=== PATIENT | female | born 1970 | race Two or more races ===

== ENCOUNTER 2024-03-02 21:59 | Emergency (ER) | payer MEDICAID, SELFPAY ==
[2024-03-02 22:07] VITALS: BP 174/97; PULSE 82; RESP 18; TEMP 37.1; O2SAT 95; BMI 33.6
--- NOTE | 2024-03-02 22:14 | ED.ABDPAIN ---
HPI - Abdominal Pain General Time Seen by Provider: 22:14 Date Seen: 03/02/24 Chief Complaint: Abdominal Pain Stated Complaint: abdominal pain Time Seen by Provider: 03/02/24 22:13 Source: patient, RN notes reviewed, old records reviewed and certified court/medical interpreter ( certified court/medical interpreter was used for the entirety of the visit.) Mode of arrival: ambulatory Limitations: no limitations History of Present Illness HPI narrative: This 53-year-old female is coming into the ER with complaint of abdominal pain. She has had abdominal pain that is associated with nausea and vomiting tonight. It is been going on a few hours. She had a normal bowel movement earlier today, no diarrhea. Pain is quite severe. She admits about a week ago she had a similar spell but it went away. She had told nursing staff that her gallbladder had been removed but I have questioned her multiple times, she states she has never had any abdominal surgery. She has felt chilled with this. No urinary symptoms. She states her only past medical history is significant for a brain aneurysm. Patient is epic chart reviewed. Last colonoscopy was in 2020, history of adenomatous colon polyp. She has rheumatoid arthritis. She has scoliosis of her thoracic spine and thoracic degenerative disc disease. She has cervical stenosis. History of dysthymic disorder and insomnia. History of depression and generalized anxiety disorder. History of hypertension. She has had a ganglion cyst excision. She has had cerebral aneurysm with DAVID WEB left middle cerebral artery. Patient has had a hysterectomy and prior section for surgeries. MD elicited complaint: abdominal pain Related Data Home Medications ?Medication ?Instructions ?Recorded ?Confirmed tocilizumab 162 mg/0.9 mL 1 subcut Q2W 03/02/24 subcutaneous syringe (Actemra) Allergies Allergy/AdvReac Type Severity Reaction Status Date / Time No Known Drug Allergies Allergy Verified 03/02/24 22:11 Review of Systems Status of ROS Reports: 6 or more systems reviewed and unremarkable except as noted in History and below PFSH PFSH Social History Smoking Status: Never smoker Do you use any of these nicotine containing products: None Second hand tobacco smoke exposure: No How often do you have a drink containing alcohol: never AUDIT-C Alcohol total score: 0 Non-prescribed substance use: denies use service: No Exam Const: Vital Signs, click to edit/add: Vital Signs - 24 hr 03/02/24 22:07 03/02/24 22:20 03/03/24 00:12 Temperature 98.7 F 100.7 F H Pulse Rate [Pulse Oximeter] 82 Respiratory Rate 18 Blood Pressure [Ri ght Upper Arm] 174/97 H Pulse Oximetry 95 95 Oxygen Delivery Me thod Room Air This 53-year-old female is very well kept but looks uncomfortable. She is seen in exam room 5. She is alert and interactive. Pupils equal round reactive, sclera clear, symmetrical facial function, able speak in complete sentences. Neck is supple, no adenopathy. Lungs are clear, good air entry, no wheezing crackles, tachypnea. CV regular rate and rhythm, no murmur, normal S1-S2, no S3-S4. Abdomen is soft, nondistended, I do not hear much for bowel sounds. She has more right sided generalized tenderness but no rebound or guarding. She has no lower extremity edema. Skin visualized without rash. Documenting provider has reviewed patient's vital signs: yes Course Course ED Course: This 53-year-old female is coming in with significant abdominal pain and nausea. We will initiate IV fluids, Toradol and Zofran for symptom control. Will be obtaining CT of her abdomen pelvis to look at intra-abdominal pathology, ensure that this is nothing surgical. Will obtain urinalysis, full complement of labs. If patient indeed does have her gallbladder, could be biliary colic or cholecystitis could be urinary symptom with infection such as pyelonephritis or kidney stone. This could be bowel pathology such as colitis, bowel obstruction. The imaging in the labs will certainly help us define the etiology. Reevaluation(s) Time of Reevaluation #1: 23:35 Reevaluation #1: Reviewed patient's CT findings the probable diverticulitis with abscess. We discussed that in her medication for her rheumatoid arthritis certainly can make infections more problematic for her. We discussed the fact that she would benefit from transferring to a higher level of care, it is possible that these abscesses may be amenable to interventional radiology. If they are not, the complexity of her case warrants cares beyond which we have here. We do not have multifaceted medical care teams with the specialties she may need. The Toradol initially had helped the patient but she states just recently her pain is starting to come back. Did discuss with her getting a dose of morphine which she would like to try. Time of Reevaluation #2: 00:10 Reevaluation #2: Patient has a temperature now of 100.7? F. We will give her 1000 mg acetaminophen. Still awaiting transfer. Follow-up lactate should be drawn shortly. Consultations Consultation #1: Did speak with the hospitalist Dr. Duncan from [facility]. She did want to see a lactate repeated. She does accept this patient. She did not need me to speak with General surgery, I did ask. I subsequently found out that nursing staff missed the fluid bolus that I had initially ordered. They will get this to the patient as quickly as possible and then start the maintenance. We still will attempt to recheck a lactate prior to patient transferring. We do need to wait for bed control to contact us and nurse to nurse to happen. Patient is complaining of more pain. Did give her initial 2 mg IV morphine which did not help at all, will repeat bolus with another 2 mg IV morphine. If this is not sufficient, will move to [facility]. Time: 23:40 Vital Signs Vital signs: Initial Vital Signs Temperature 98.7 F 03/02/24 22:07 Temperature Source Temporal Artery Scan 03/02/24 22:07 Pulse Rate 82 03/02/24 22:07 Pulse Rhythm Regular 03/02/24 22:07 Pulse Strength 3+ Normal 03/02/24 22:07 Respiratory Rate 18 03/02/24 22:07 Blood Pressure 174/97 H 03/02/24 22:07 Blood Pressure Mean 122 H 03/02/24 22:07 Blood Pressure Position Semi-Fowlers 03/02/24 22:07 Pulse Oximetry 95 03/02/24 22:07 Oxygen Delivery Method Room Air 03/02/24 22:07 Vital Signs Temperature 98.7 F 03/02/24 22:07 Pulse Rate 82 03/02/24 22:07 Respiratory Rate 18 03/02/24 22:07 Blood Pressure 174/97 H 03/02/24 22:07 Pulse Oximetry 95 03/02/24 22:07 Oxygen Delivery Method Room Air 03/02/24 22:07 Temperature 99.1 F 03/03/24 01:58 Pulse Rate 102 H 03/03/24 01:58 Respiratory Rate 20 03/03/24 01:58 Blood Pressure 145/81 H 03/03/24 01:58 Pulse Oximetry 94 03/03/24 01:57 Oxygen Delivery Method Room Air 03/03/24 01:57 Medications Administered Medications: Discontinued Medications Generic Name Dose Route Start Last Admin Trade Name Chela PRN Reason Stop Dose Admin Acetaminophen 1,000 mg 03/03/24 00:10 03/03/24 00:19 Acetaminophen 500 Mg Tablet PO 03/03/24 00:11 1,000 mg ONCE ONE Administration Sodium Chloride 1,000 mls @ 500 mls/hr 03/02/24 22:21 03/03/24 00:19 0.9 % Sodium Chloride 1000 Ml IV 03/03/24 00:20 Infused .Q2H DOREEN Infusion Piperacillin Sod/Tazobactam 100 mls @ 200 mls/hr 03/02/24 23:30 03/03/24 00:19 Sod 3.375 gm/ Sodium Chloride IVPB 03/02/24 23:31 Infused ONCE ONE Infusion Potassium Chloride/Sodium Chloride 1,000 mls @ 100 mls/hr 03/02/24 23:31 03/03/24 00:18 0.9 % Sodium Ch + Kcl 20 Meq/L IV 100 mls/hr .Q10H DOREEN Administration Ketorolac Tromethamine 15 mg 03/02/24 22:20 03/02/24 22:33 Ketorolac 15 Mg/Ml Inj IVP 03/02/24 22:21 15 mg ONCE ONE Administration Morphine Sulfate 2 mg 03/02/24 23:48 03/02/24 23:50 Morphine 2 Mg/Ml Inj IVP 03/02/24 23:49 2 mg ONCE ONE Administration Morphine Sulfate 2 mg 03/02/24 23:55 03/02/24 23:55 Morphine 2 Mg/Ml Inj IVP 03/02/24 23:56 2 mg ONCE ONE Administration Ondansetron HCl 4 mg 03/02/24 22:20 03/02/24 22:30 Ondansetron 2 Mg/Ml Inj IVP 03/02/24 22:21 4 mg ONCE ONE Administration MDM - Abdominal Pain Lab Data Attestation: I reviewed the patient's lab results. Labs: Lab Results 03/02/24 03/03/24 03/03/24 Range/Units 22:10 00:10 01:05 WBC 7.51 (4.50-11.00) K/uL RBC 4.94 (4.00-5.20) m/uL Hgb 14.9 (12.0-16.0) gm/dL Hct 44.1 (33.0-51.0) % MCV 89 (80-100) fL MCH 30 (26-34) pg MCHC 34 (32-36) gm/dL RDW Coeff of Nicola 13.1 (11.5-15.5) % Plt Count 286 (140-440) K/uL Neut % (Auto) 74.2 H (42.0-72.0) % Lymph % (Auto) 16.9 L (20-44) % [place] % (Auto) 2.9 (0.0-11.0) % Eos % (Auto) 5.2 (0.0-7.0) % Baso % (Auto) 0.1 (0.0-3.0) % Neut # (Auto) 5.60 (1.7-7.0) K/uL Lymph # (Auto) 1.30 (0.90-2.90) K/uL [place] # (Auto) 0.20 (0.00-0.90) K/UL Eos # (Auto) 0.39 (0.00-0.50) K/uL Baso # (Auto) 0.01 (0.00-0.30) K/uL Abs Immat Gran (auto) 0.05 (0.00-0.30) K/uL Imm/Tot Granulo (auto) 0.7 % Sodium 140 (135-149) mmol/L Potassium 3.3 L (3.6-5.1) mmol/L Chloride 104 (96-114) mmol/L Carbon Dioxide 28 (20-32) mmol/L Anion Gap 8 (7-15) mEq/L BUN 17 (7-30) mg/dL Creatinine 0.7 (0.5-1.5) mg/dL Estimated Creat Clear 65.99 Estimated GFR 103 ml/min Glucose 124 H (60-115) mg/dL Lactate 3.1 H 2.1 H (0.5-1.9) mmol/L Calcium 8.9 (8.4-10.6) mg/dL Total Bilirubin 0.8 (0.1-1.5) mg/dL Direct Bilirubin 0.4 (0.0-0.5) mg/dL AST 85 H (12-35) U/L ALT 91 H (4-35) U/L Alkaline Phosphatase 117 (40-150) U/L C-Reactive Protein 1.1 H (0.5-1.0) mg/dL Total Protein 7.8 (6.0-8.3) g/dL Albumin 4.7 (3.3-5.0) g/dL Lipase 55 (23-300) U/L Urine Color Yellow (Yellow) Urine Appearance Clear (Clear) Urine pH 7.0 (5.0-8.5) Ur Specific [place] 1.015 (1.000-1.030) Urine Protein Negative (Negative) Urine Glucose (UA) Negative (Negative) Urine Ketones Negative (Negative) Urine Blood Trace-intact A (Negative) Urine Nitrite Negative (Negative) Urine Bilirubin Negative (Negative) Urine Urobilinogen 0.2 (0.2-1.0) Ur Leukocyte Esterase Negative (Negative) Urine RBC 2-5 A (0-2) Urine WBC 2-5 (0-5) Ur Squamous Epith Cells Few (None-Few) Urine Bacteria Few A (None) Imaging Data CT scan - abdomen: Attestation: I have reviewed the pertinent imaging results. Radiologist's impression: Patient: CIARA ZHAO Facility:?[facility] Patient ID:?[id number] Site Patient ID:?[id number]. Site :?[id number] Study:?CT-Abdomen/Pelvis W/ISOVUE 370 84CC-03/02/2024 11:06:05 PM Ordering Physician:?Richie Garcia Final Report: Indication: Abdominal pain, nausea and vomiting Technique: CT through the abdomen and pelvis following 84 mL Isovue 370 IV contrast Comparison: None Findings: Lower chest: No acute abnormality appreciated. Hepatobiliary: No significant parenchymal abnormality is appreciated. Spleen: Unremarkable. Pancreas: No acute abnormality appreciated. Adrenal glands: No acute abnormality appreciated. Kidneys: No significant parenchymal abnormality appreciated. No visualized calculi. No hydronephrosis. Bowel: No obstruction. Marked wall thickening and stranding along the sigmoid colon. There is an organized fluid collection likely arising from an area of diverticulitis to the lower paramedian abdomen which appears to have at least 2 loculated components, with the portion abutting: Measuring 2.6 x 1.9 centimeters, and the collection just superior which is abutting the small bowel measuring 2.6 x 2.7 centimeters. The adjacent small bowel is markedly thickened, likely reactive. The appendix is noted, appears mildly inflamed but may be reactive. Vascular: No acute abnormality appreciated. Lymph nodes: No gross lymphadenopathy. Peritoneum: As above, no free air. : Mild wall thickening, likely reactive. Soft tissues: No acute abnormality appreciated. Bones: No acute fracture. No lytic or blastic lesion. Impression: Suspect acute diverticulitis with a multiloculated abscess and reactive wall thickening of the small bowel and appendix. Please note that all CT scans at this facility use dose modulation, iterative reconstruction, and/or weight-based dosing when appropriate to reduce radiation dose to as low as reasonably achievable. Dictated by Eusebio Fried MD @ 03/02/2024 11:17:40 PM (Electronic Signature) Discharge Plan Discharge Clinical Impression: Diverticulitis of intestine with abscess Qualifiers: Diverticulitis site: large intestine Diverticulitis bleeding: without bleeding Qualified Code(s): K57.20 - Diverticulitis of large intestine with perforation and abscess without bleeding Patient Disposition: Xfer Acute Care Hospital Discharge Location: [facility]
[2024-03-02 22:20] VITALS: O2SAT 95
--- NOTE | 2024-03-02 22:20 | CRLHL7_ITS ---
For Patients: As a result of the Century Cures Act, medical imaging exams and procedure reports are released immediately into your electronic medical record. You may view this report before your referring provider. If you have questions, please contact your health care provider. Indication: Abdominal pain, nausea and vomiting Technique: CT through the abdomen and pelvis following 84 mL Isovue 370 IV contrast Comparison: None Findings: Lower chest: No acute abnormality appreciated. Hepatobiliary: No significant parenchymal abnormality is appreciated. Spleen: Unremarkable. Pancreas: No acute abnormality appreciated. Adrenal glands: No acute abnormality appreciated. Kidneys: No significant parenchymal abnormality appreciated. No visualized calculi. No hydronephrosis. Bowel: No obstruction. Marked wall thickening and stranding along the sigmoid colon. There is an organized fluid collection likely arising from an area of diverticulitis to the lower paramedian abdomen which appears to have at least 2 loculated components, with the portion abutting: Measuring 2.6 x 1.9 centimeters, and the collection just superior which is abutting the small bowel measuring 2.6 x 2.7 centimeters. The adjacent small bowel is markedly thickened, likely reactive. The appendix is noted, appears mildly inflamed but may be reactive. Vascular: No acute abnormality appreciated. Lymph nodes: No gross lymphadenopathy. Peritoneum: As above, no free air. : Mild wall thickening, likely reactive. Soft tissues: No acute abnormality appreciated. Bones: No acute fracture. No lytic or blastic lesion. Impression: Suspect acute diverticulitis with a multiloculated abscess and reactive wall thickening of the small bowel and appendix. Please note that all CT scans at this facility use dose modulation, iterative reconstruction, and/or weight-based dosing when appropriate to reduce radiation dose to as low as reasonably achievable. Dictated by Eusebio Fried MD @ 03/02/2024 11:17:40 PM (Electronically Signed)
[2024-03-02 22:27] LABS: Lactate* 3.1 mmol/L (0.5-1.9)
[2024-03-02] MEDS: ONDANSETRON 2 MG/ML inj 4 MG IVP (22:30)
[2024-03-02] MEDS: KETOROLAC 15 MG/ML inj IVP (22:33)
[2024-03-02 22:43] LABS: Albumin* 4.7 g/dL (3.3-5.0); Chloride* 104 mmol/L (96-114)
[2024-03-02 22:44] LABS: Potassium* 3.3 mmol/L (3.6-5.1); Sodium* 140 mmol/L (135-149)
[2024-03-02 22:46] LABS: Alkaline Phosphatase* 117 U/L (40-150); Anion Gap 8 mEq/L (7-15); Aspartate Amino Transferase* 85 U/L (12-35); Basophils Absolute Auto 0.01 K/uL (0.00-0.30); Basophils Percent Auto 0.1 % (0.0-3.0); Bilirubin Direct* 0.4 mg/dL (0.0-0.5); Bilirubin Total* 0.8 mg/dL (0.1-1.5); Carbon Dioxide* 28 mmol/L (20-32); Creatinine* 0.7 mg/dL (0.5-1.5); Eosinophils Absolute Auto 0.39 K/uL (0.00-0.50); Eosinophils Percent Auto 5.2 % (0.0-7.0); Est. Creatinine Clearance* 65.99; Estimated Glomerular Filt Rate 103 ml/min; Hematocrit 44.1 % (33.0-51.0); Hemoglobin* 14.9 gm/dL (12.0-16.0); Immature Granulocytes Abs Auto 0.05 K/uL (0.00-0.30); Immature Granulocytes Pct Auto 0.7 %; Lymphocytes Percent Auto 16.9 % (20-44); Mean Corpuscular HGB Conc 34 gm/dL (32-36); Mean Corpuscular Hemoglobin 30 pg (26-34); Mean Corpuscular Volume 89 fL (80-100); Monocytes Percent Auto 2.9 % (0.0-11.0); Neutrophils Percent Auto 74.2 % (42.0-72.0); Platelet Count* 286 K/uL (140-440); RDW Coefficient of Variation % 13.1 % (11.5-15.5); Red Blood Count 4.94 m/uL (4.00-5.20); Total Protein* 7.8 g/dL (6.0-8.3); White Blood Count* 7.51 K/uL (4.50-11.00)
[2024-03-02 22:47] LABS: Alanine Aminotransferase* 91 U/L (4-35); Blood Urea Nitrogen* 17 mg/dL (7-30); Calcium* 8.9 mg/dL (8.4-10.6); Glucose* 124 mg/dL (60-115)
[2024-03-02 22:49] LABS: C Reactive Protein* 1.1 mg/dL (0.5-1.0)
[2024-03-02 22:50] LABS: Slide Review Reflex No
[2024-03-02 22:51] LABS: Lipase* 55 U/L (23-300)
--- OUTSIDE RECORDS SUMMARY | 2024-03-02 23:10 | XMS_ITS | Data Portability ---
Author Organization [facility] Address [address] [place] [address] JAQUAN ASHRAF [id number] Assessment Encounter Date Assessment Date Assessment LastModified by Organization Details LastModified Time 04/14/2020 04/14/2020 preop exam brain aneurysm Not available 04/14/2020 19:51:53 Plan of Treatment Reminders Order Date Submit Date Provider Last Modified By Organization Details Last Modified Time Details Appointments None recorded. Lab CMP, serum or plasma 2019 [facility] Not available 0 12:07:20 CBC 2019 020 [facility] Not available 0 12:10:34 INR, plasma 2019 020 [facility] Not available 0 12:10:34 Referral None recorded. Procedures None recorded. Surgeries None recorded. Imaging None recorded. Medication Orders loratadine 10 mg tablet [address], [address], 16:18:45 famotidine 20 mg tablet [address], [address], 16:18:36 Patient TargetsNo targets recorded. Patient Instructions Encounter Date Encounter Id Patient Instructions Last Modified By Organization Details Last Modified Time 04/14/2020 [id number] rhythm strip, EKG* [email or web address] Not available 04/21/2020 16:43:32 go for lab work at [facility] tomorrow. Not available 04/14/2020 19:58:17 Reason for Referral None Reported. Results Created Date Observation Date Name Description Value Unit Range Abnormal Flag LastModifiedBy Organization Detail LastModifiedTime 04/21/20 20 04/15/2020 rhyth m strip , EKG* No observ ation record ed. [email or web address] Not Available 15:21:28 Result Notes None recorded. Problems Name Status Onset Date Resolution Date Notes Provider Name and Address Organization Details Recorded Time Rheumatoid arthritis Active ANURADHA MAK [address] [place] [address], [phone] , [email or web address] 05/03/2022 14:33:22 Migraine Active ANURADHA MAK [address] [place] [address], [phone] , [facility] [employer] 05/03/2022 14:34:15 History of cerebral aneurysm Completed 05/03/2022 ANURADHA MAK [address] [place] [address], [phone] , [employer] 05/03/2022 14:34:28 Hypertensive disorder Active ANURADHA MAK [address] [place] [address], [phone] , [facility] [employer] 05/03/2022 14:39:42 Anxiety disorder Active ANURADHA MAK [address] [place] [address], [phone] , [employer] 05/03/2022 14:39:50 Depressive disorder Active ANURADHA MAK [address] [place] [address], [phone] , [employer] 05/03/2022 14:39:57 Uterine fibroid polyp Completed 05/03/2022 ANURADHA MAK [address] [place] [address], [phone] , [employer] 05/03/2022 14:40:10 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 Procedures Surgical History None recorded. Imaging Results Imaging Date Name Status LastModified by Organiz ation Details LastModified Time 04/15/2020 rhythm strip, EKG* completed Information not available 05/05/2021 15:21:28 Procedure Notes None recorded. Medical Equipment None Reported. Allergies No known drug allergies Medications Name Sig Start Date Stop Date Status Note LastModified by Organization Details LastModified Time tizanidine 4 mg tablet TAKE 1 TABLET (4 MG) BY MOUTH EVERY 6 HOURS IF NEEDED FOR MUSCLE SPASM. 05/04 completed Not Available Not Available Not Available prednisone 5 mg tablet TAKE 1 TABLET (5 MG) BY MOUTH ONCE DAILY WITH A MEAL. 05/04 completed Not Available Not Available Not Available famotidine 20 mg tablet TAKE 1 TABLET BY MOUTH TWICE A DAY active Not Available Not Available No t Available triamcinolo ne acetonide 0.1 % lotion APPLY TOPICALLY TO AFFECTED AREA(S) THREE TIMES DAILY. active Not Available Not Available No t Available loratadine 10 mg tablet TAKE 1 TABLET BY MOUTH EVERY DAY active Not Available Not Available No t Available cholecalcif francisca (vitamin D3) 1 tablet daily active Not Available Not Available No t Available B12 1 pill active Not Available Not Availa ble Not Available Queta Allergy 180 mg tablet Take 1 tablet every day by oral route. active Not Available Not Available No t Available Vitals Date Recorded Body height Body mass index (BMI) Body weight Heart rate Body temperature Oxygen saturation Oxygen saturation in Arterial blood by Pulse oximetry Systolic blood pressure Diastolic blood pressure Provider Name and Address Organization Details Last Updated DateTime 0 147.32 cm 35.3 kg/m2 81849.1 1 g 72 /min 98.5 [degF] 97 % 97 % 132 mm[Hg] 88 mm[Hg] Casie Quiros [facility] [employer] [facility] 0 19:30:03 Date Recorded Body weight Heart rate Systolic blood pressure Diastolic blood pressure Provider Name and Address Organization Details Last Updated DateTime 05/04/2022 93472.45 g 74 /min 172 mm[Hg] 98 mm[Hg] ANA MAK [address] [place] [address], [phone] , [place] [facility] 05/04/2022 10:21:33 Social History Question Answer Notes LastModified by Organizat ion Details LastModified Time Tobacco Smoking Status Never Smoker Not Available [employer] 05/25/2020 03:52:53 Do You Or Have You Ever Used E-cigarettes Or Vape? Never Used Electronic Cigarettes [id number] Information not available 05/25/2020 Sex: Unknown Functional Status None recorded. Mental Status None recorded. Family History Nothing Reported. Medical History No medical history recorded. Gynecological HistoryNo gynecological history recorded. 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 Concerns Section Related Observation LastModified by Organization Detai ls LastModified Time None Recorded Concern Status LastModified by Organization Details LastModified Time None Recorded Advance Directives Directive None Recorded Payers Encounter Date Sequence Insurance Name Policy Number Policy Matos Covered Member ID Matos Member ID Guarantor Name 02/05/2020 SLIDING FEE SCHEDULE - DISCOUNT Aaliyah Kyrie 04/14/2020 SLIDING FEE SCHEDULE - DISCOUNT Aaliyah Kyrie 05/04/2022 SLIDING FEE SCHEDULE - DISCOUNT Aaliyah Kyrie Notes Date Note Type Note Provider Name and Address Organization Details Recorded Time 04/14/2020 text/html HPI Notes: Pre-O p Reported by patient. Notes: Seen today for preop exam for cerebral angiogram and coiling Iker Lynch MD [address] [place], [address], [facility] [employer] [facility] 04/14/2020 19:59:43 05/04/2022 text/html HPI Notes: Speak s pretty good Kyrgyz, so criminal justice professor was not used. Pt presents to clinic to discuss recurrent hives. She was seen at [facility] and given Triamcinolone in addition to queta. The cream helps the itching, but does not prevent the rash. They appear as hot, itchy bumps. She itches them and then they form a small scab. She insists these are not bug bites. Lesions last <24 hours, no pattern to emergency, non-photophobic, non painful. She denies new exposures (foods, soap, detergent, pets, other environmental). She has not trialled a food diary. ELIZABETH MAK- [address] [place], [address], [facility] [employer] [facility] 05/08/2022 13:22:02 OBGyn Episode No OBEpisode recorded.
--- OUTSIDE RECORDS SUMMARY | 2024-03-02 23:10 | XMS_ITS | Clinical Summary ---
Author Organization [facility] Address [place], [place] [address] Care Team Providers Care Game Operator Name Role Phone Antione Lloyd MD Unavailable Unavailab Kelvin Joiner MD Unavailable [phone] Pcp, No Primary Care Provider Unavailabl e Allergies Active Allergy Reactions Criticality Noted Date Comments Rituximab Other - Describe In Comment Field 04/07/2021 Throat swelling?? Medications Medication Sig Dispensed Refills Start Date End Date Status cyanocobalamin (VITAMIN B-12) 1,000 mcg tablet Take 1 tablet by mouth once daily. 90 tablet 3 03/18/2019 Active acetaminophen (TYLENOL EXTRA STRENGTH) 500 mg tablet Take 500 mg by mouth 2 times daily if needed. Max acetaminophen dose: 4000mg in 24 hrs. Active meloxicam (MOBIC) 7.5 mg tabletIndications :Chronic midline low back pain with left-sided sciatica Take 1-2 Tablets (7.5-15 mg) by mouth once daily. Do not take other NSAID medication with this ( No ibuprofen). 60 Tablet 3 10/10/2022 Active Additional Information Patient taking differently: 7.5 mgOral DAILY, Do not take other NSAID medication with this ( No ibuprofen)., Reported on 10/26/2023 MAGNESIUM ORAL Take by mouth. Active tocilizumab (Actemra) 162 mg/0.9 mL subcutaneous syringeIndication s:Rheumatoid arthritis, involving unspecified site, unspecified whether rheumatoid factor present (HC) Inject 162 mg subcutaneous every 2 weeks. 1.8 mL 4 02/04/2024 Active tocilizumab (Actemra) 162 mg/0.9 mL subcutaneous syringeIndication s:Rheumatoid arthritis, involving unspecified site, unspecified whether rheumatoid factor present (HC) Inject 162 mg subcutaneous every 2 weeks. 1.8 mL 4 10/26/2023 4 Discontinue d(Reorder (E-cancel not sent)) Active Problems Problem Noted Date Diagnosed Date Adenomatous colon polyp 08/24/2020 Overview: Colonoscopy 07/2020 polyp, repeat in 7 years Rheumatoid arthritis with positive rheumatoid fa ctor 05/28/2020 History of hypertension 04/03/2019 Overview: Only while on Cymbalta Brain aneurysm 08/23/2018 Overview: S/p endovascular WEB embolization of incidental left MCA aneurysm on 04/01/19. WEB device is MRI compatible up to 3 Shannon. Chronic midline low back pain without sciatica 0 03/08/2018 Cervical stenosis of spine 01/10/2018 Moderate episode of recurrent major depressive d isorder 07/25/2017 MITCH (generalized anxiety disorder) 07/25/2017 Insomnia 03/21/2017 DDD (degenerative disc disease), thoracic 2012 Scoliosis of thoracic spine 06/19/2012 Overview: Slight, convex to the right Dysthymic disorder 07/05/2011 Rheumatoid arthritis(714.0) 02/06/2007 Overview: Positive RA quant, 2002 Flat foot(734) 01/29/2007 Resolved Problems Problem Noted Date Diagnosed Date Resolved Date Severe neutropenia 10/16/2019 3 Antiplatelet or antithrombotic long-term use 9 10/03/2022 Hypertension 07/31/2018 03/18/2019 Other person consulting on b ehalf of another person 07/05/2011 10/03/2022 Menorrhagia 06/30/2011 07/31/2018 Encounter for long-term (cur rent) use of high-risk medication 12/03/2008 12/03/2008 Encounter for long-term (cur rent) use of high-risk medication 09/25/2008 02/17/2015 Encounter for long-term (cur rent) use of other medications 03/06/2008 12/03/2008 Encounters Date Type Department Care Team Description 02/11/[address] [facility] [address] [place] [address] Kelvin Barboza MD Questions (Actemra) 02/04/[address] [facility] [address] [place] [address] Kelvin Barboza MD Refill Request (SQ Actemra) from Last 3 Months Immunizations Name Administration Dates Next Due Influenza, IIV3 (Age >=3 years) 04/10/2013,03/26,05/13/2008,07/19/2007 Influenza, IIV4 04/16/2019,07/31/2018,05/25/2016 ,07/07/2015 MMR 12/06/2004 Td (Age >=7 Years) 07/24/1998 Tdap 07/31/2018,08/27/2008 Tuberculin (PPD) 02/09/2003 Family History Medical History Relation Name Comments Diabetes Brother raphael Diabetes Father Diabetes Sister Anesthesia Problem No Family History Blood Disease No Family History Cancer-breast No Family History Relation Name Status Comments Brother raphael Alive Father (Age ?) ? Mother (Age ?) ? Sister Social History Tobacco Use Types Packs/Day Years Used Date Smoking Tobacco: Never Smokeless Tobacco: Never Tobacco Cessation:Counseling Given: Yes Alcohol Use Standard Drinks/Week Comments No 0 (1 standard drink = 0.6 oz pur e alcohol) PHQ-2 Answer Date Recorded PHQ-2 TOTAL SCORE 0 04/06/2022 Social Connections Answer Date Recorded Frequency of Communication with Friends and Fami ly Not on file 07/14/2021 Financial Resource Strain Answer Date R ecorded Difficulty of Paying Living Expenses Not on file 07/14/2021 Difficulty of Paying Living Expenses Not on file 07/14/2021 Sex and Gender Information Value Date Recorded Sex Assigned at Not on file Gender Identity Not on file Sexual Orientation Not on file Obstetrics History Para Term AB IAB SAB Ectopic Multiple Livin g Live Births 4 0 0 0 1 0 1 0 0 2 2 Date Outcome GA Total Labor Labor/2nd/3rd Weight Sex Type Anes PTL Nayla A1 A5 Name Clin Comments:System Genera adis. Please review and update details. SAB Living Living Last Filed Vital Signs Vital Sign Reading Time Taken Comments Blood Pressure 144/76 10/26/2023 12:06 PM CDT Pulse 86 10/26/2023 12:06 PM CDT Temperature 36.8 ??C (98.2 ??F) 04/05/2021 9:07 AM CD T Respiratory Rate 12 10/26/2023 12:06 PM CDT Oxygen Saturation 98% 10/10/2022 8:13 AM CDT Inhaled Oxygen Concentration - - Weight 80.3 kg (177 lb) 10/26/2023 12:06 PM CDT Height 149.9 cm (4' 11) 04/06/2023 1:00 PM CDT Body Mass Index 35.75 04/06/2023 1:00 PM CDT Plan of Treatment Upcoming Encounters Date Type Department Care Team (Late st Contact Info) Description 05/02/2024 1:00 PM CDT Office Visit [facility] [address] [place] [address] Kelvin Barboza MD [address] [place] [address] Health Maintenance Due Date Last Done Comments COVID-19 vaccine series (#1) 1974 Zoster (shingles) series for age 50+ (1 of 2) 1988 Mammogram for age 45-75 06/25/2021 06/25/20, 10/09/2018, 08/30/2017, Additional history exists Depression screening for age 12+ 04/06/2023 04/06/2022, 04/06/2022, 03/02/2021, Additional history exists Lipids for age 45-75 07/31/2023 07/31/2018, 08/30/2017, 11/15/2015, Additional history exists Influenza for age 50-64 03/23/2024 04/16/20, 07/31/2018, 05/25/2016, Additional history exists BMI (ht and wt on same day) for age 18+ 04/06/2024 04/06/2023, 04/06/2022, 11/11/2021, Additional history exists Colonoscopy through age 75 08/20/202708/20, 08/20/2020, 08/20/2020, Additional history exists Tetanus booster 07/31/2028 07/31/2018, 11/2008, 07/24/1998 Tdap Completed 07/31/2018, 08/27/2008 HIV for age 15-65 Completed 09/04/2019 Hepatitis C screening for age 18-79 Completed 09/04/2019, 09/02/2019, 02/09/2003 Pneumococcal series for age 6-64 Aged Out No longer eligible based on patient's age to complete this topic Goals Goal Patient Goal Type Associated Problems Recent Progress Patient-Stated? Author BLOOD PRESSURE - MAINTAINS BP less than 140/90 Blood Pressure No Kailey Velasco NP Procedures Procedure Name Priority Date/Time Associated Diagnosis Comments COLONOSCOPY SCREENING Routine 08/20/2020 9:51 AM [employer] Screening for colon cancer XR MAMMO BILAT SCREENING Routine 06/25/2020 1:47 PM [employer] Encounter for screening mammogram for malignant neoplasm of breast ANTI HIV 1/2 Routine 09/04/2019 3:38 PM [employer] Abnormal white blood cell count ANTI HCV Routine 09/04/2019 3:38 PM [employer] O[employer]ATOR Abnormal white blood cell count LIPID PANEL W REFLEX MEASURED LDL Routine 07/31/2018 2:20 PM [employer] O[employer]ATOR Hypertension, unspecified type from Last 3 Months or Most Recently Relevant to Health Maintenance Results * COLONOSCOPY (08/20/2020 10:06 AM [employer] O[employer]ATOR) 08/20/2020 10:0 6 AM [employer] OPERATOR Narrative Transcriptions Donaldo Cedillo MD - 08/20/2020 10:54 AM CST Patient Name: Aaliyah Fields Procedure Date: 08/20/2020 Gender: Female Date of : 1970 Admit Type: Outpatient Procedure: Colonoscopy Proceduralist: Donaldo Cedillo MD , Jil England, RN(Nurse) Referring MD: Fabiola Allan Indications/Pre-Op Diagnosis: Screening for colorectal malignant neoplasm, This is the patient's first colonoscopy Medications: Fentanyl 100 micrograms IV, Midazolam 2 mgIV, The level of sedation administered wasmoderate Procedure Description: The patient had risks, benefits and alternatives explained to andgave informed consent. The patient had a stable cardiopulmonary status and judged an adequate candidate for conscious sedation. The Colonoscope was passed through the anus and advanced to thececum, identified by appendiceal orifice and ileocecal valve. Thecolonoscopy was performed without difficulty. The patient tolerated the procedure well. The quality of the bowel preparation was good. The ileocecal valve, appendiceal orifice, and rectum were photographed. Complications: No immediate complications. Estimated Blood Loss & Specimen: Estimated blood loss: none. Specimen collected - Yes and sent to Laboratory Findings: The perianal and digital rectal examinations were normal. A 3 mm polyp was found in the cecum. The polyp was sessile. The polyp was removed with a cold biopsy forceps. Resection and retrieval were complete. The exam was otherwise without abnormality on direct and retroflexion views. Impressions/Post-Op Diagnosis: - One 3 mm polyp in the cecum, removed with a cold biopsy forceps. Resected and retrieved. - The examination was otherwise normal on direct and retroflexionviews. Recommendation: - Patient has a contact number available for emergencies. The signsand symptoms of potential delayed complications were discussed with the patient. Return to normal activities tomorrow. Written discharge instructions were provided to the patient. - Resume previous diet. - Continue present medications. - Await pathology results. - Repeat colonoscopy is recommended. The colonoscopy date will be determined after pathology results from today's exam become available for review. Moderate Sedation: Moderate (conscious) sedation was administered by the endoscopy nurse and supervised by the endoscopist. The following parameters were monitored: oxygen saturation, heart rate, respiratory rate, blood pressure, adequacy of pulmonary ventilation and reponse to care. Please refer to the patient's medical record flowsheets and nursing notes for moderate sedation details. Total physician intraservice time was 17 minutes. Donaldo Cedillo MD 08/20/2020 10:53:50 AM This report has been signed electronically. Note Initiated On: 08/20/2020 10:06 AM Procedure Code(s): --- Professional --- 83477, Colonoscopy, flexible; with biopsy, single or multiple Diagnosis Code(s): --- Professional --- Z12.11, Encounter for screening formalignant neoplasm of colon K63.5, Polyp of colon CPT copyright 2019 [employer]. All rights reserved. The codes documented in this report are preliminary and upon insurance coder reviewmay be revised to meet current compliance requirements. Scope In: 10:29:14 AM Scope Withdrawal Time 0 hours 8 minutes 25 seconds Scope Out: 10:44:43 AM Donaldo Cedillo MD PROCEDURE ORD * XR MAMMO BILAT SCREENING (06/25/2020 1:47 PM [employer]) Anatomical Region Laterality Modality BREASTS, Breast Left, Breast Right Bilateral Mammography Impressions 06/28/2020 2:15 PM [employer] OPERATOR ??There is no radiographic evidence for malignancy. ??Recommend annual mammograms. A lay language report of this examination will be provided to the patient. MAMMOGRAM ASSESSMENT: ??ACR 1 Negative Narrative 06/28/2020 2:15 PM [employer] OPERATOR XR MAMMO BILAT SCREENING [[id number]] CLINICAL HISTORY: ??This is an asymptomatic 49 y.o. patient. INDICATION FOR EXAM: Mammogram Screening. TECHNIQUE: CC & MLO views were obtained. ??This digital study was evaluated with the assistance of Computer-Aided Detection. COMPARISON FILM: Yes 10/09/18 [facility] 08/30/17 [facility] FINDINGS: ??Mammographically, the breast tissue has scattered fibroglandular densities. ??There are no dominant masses, suspicious micro calcifications or areas of architectural distortion. Fabiola NANCEO * ANTI HCV (09/04/2019 3:38 PM [employer] O[employer]) Pathologist [facility] HEPATITIS C ANTIBODY Non-React baron Non-React baron 09/05/2019 4:10 PM [employer] OPERATOR [facility] Comment:Antibodies to HCV no t detected; does not exclude the possibility of exposure to HCV. Blood BLOOD SPECIMEN / Unknown Venipuncture / Unknown 09/04/2019 3:38 PM [employer] OPERATOR 09/04/2019 3:45 PM [employer] OPERATOR Rafia Horowitz MD [facility] [address] [place] [address], * ANTI HIV 1/2 (09/04/2019 3:38 PM [employer] OPERATOR) Pathologist [facility] HIV-1/HIV-2 ANTIBODY Non-Reacti ve Non-Reacti ve 09/05/2019 4:08 PM [employer] OPERATOR [facility] Comment:HIV-1 p24 and HIV-1/ HIV-2 Ab not detected. Blood BLOOD SPECIMEN / Unknown Venipuncture / Unknown 09/04/2019 3:38 PM [employer] OPERATOR 09/04/2019 3:45 PM [employer] OPERATOR Rafia Horowitz MD [facility] [address] [place] [address], [place] * LIPID PANEL W REFLEX MEASURED LDL (07/31/2018 2:20 PM [employer] OPERATOR) Pathologist [facility] CHOLESTEROL,TOTAL 177 100 - 199 mg/dL 08/01/2018 12:45 AM [employer] OPERATOR [facility] TRIGLYCERIDES 117 <150 mg/dL 08/01/2018 12:45 AM [employer] OPERATOR [facility] HDL CHOLESTEROL 43 >40 mg/dL 9 12:45 AM [employer] OPERATOR [facility] NON-HDL CHOLESTEROL 134 <145 mg/dl 08/01/2018 12:45 AM [employer] OPERATOR [facility] CHOL/HDL RATIO 4.12 <4.50 08/01/2018 12:45 AM [employer] OPERATOR [facility] LDL CHOLESTEROL 111 <=130 mg/dL 08/01/2018 12:45 AM [employer] OPERATOR [facility] PROVIDER ORDERED STATUS RANDOM 08/01/2018 12:45 AM [employer] OPERATOR [facility] Blood BLOOD SPECIMEN / Unknown Venipuncture / Unknown 07/31/2018 2:20 PM [employer] OPERATOR 07/31/2018 2:25 PM [employer] OPERATOR Fabiola FENG CHEMI[facility] [address] [place] [address], from Last 3 Months or Most Recently Relevant to Health Maintenance Advance Directives * Full Code (Latest Code Status on File) Date Activated Date Inactivated Comments 07/26/2020 6:27 AM 07/26/2020 1:56 PM Question Answer Comments Code Status Discussion: Not Discussed * Full Code Date Activated Date Inactivated Comments 09/23/2019 8:50 AM 09/24/2019 2:10 AM * Full Code Date Activated Date Inactivated Comments 04/01/2019 1:45 PM 04/03/2019 3:44 PM Question Answer Comments Code Status Discussion: Discussed * Full Code Date Activated Date Inactivated Comments 03/29/2012 2:20 PM 03/30/2012 8:46 PM * Full Code Date Activated Date Inactivated Comments 03/29/2012 8:42 AM 03/29/2012 2:20 PM Care Teams Game Operator Relationship Specialty Start Date End Date Pcp, No . PCP - General 01/18/23 Antione Lloyd MD Surgery - Otolaryngology 08/16/16 Kelvin Barboza MD [address] [place] [address] Rheumatology 08/16/16
[2024-03-02] MEDS: 0.9 % SODIUM CHLORIDE 1000 ml 1,000 ML 500 ML IV (23:39)
[2024-03-02] MEDS: PIPERACILLIN/TAZOBACTAM 3.375 GM in 0.9 % SODIUM CHLORIDE Mini-bag 100 ML IVPB (23:40)
[2024-03-02] MEDS: MORPHINE 2 MG/ML inj IVP ×2 (23:50→23:55)
[2024-03-03 00:12] VITALS: TEMP 38.2
[2024-03-03 00:14] LABS: Lactate* 2.1 mmol/L (0.5-1.9)
[2024-03-03 00:15] VITALS: TEMP 38.2
[2024-03-03] MEDS: 0.9 % SODIUM CH + KCL 20 mEq/L 1,000 ML 100 ML IV (00:18)
[2024-03-03] MEDS: ACETAMINOPHEN 500 MG TABLET 1000 MG PO (00:19)
[2024-03-03 00:29] VITALS: BP 169/78; PULSE 97; RESP 20; O2SAT 95
[2024-03-03 01:13] VITALS: BP 142/70; PULSE 99; RESP 20; O2SAT 94
[2024-03-03 01:16] LABS: Appearance Urine Clear (Clear); Bilirubin Urine Negative (Negative); Blood Urine Trace-intact (Negative); Color Urine Yellow (Yellow); Glucose Urine Negative (Negative); Ketones Urine Negative (Negative); Leukocyte Esterase Urine Negative (Negative); Nitrite Urine Negative (Negative); Protein Urine Negative (Negative); Specific Gravity Urine 1.015 (1.000-1.030); Urobilinogen Urine 0.2 (0.2-1.0)
[2024-03-03 01:26] LABS: Bacteria Urine Few; Squamous Epithelial Cell Urine Few (None-Few)
[2024-03-03 01:57] VITALS: BP 145/81; PULSE 102; RESP 20; TEMP 37.3; O2SAT 94
[2024-03-03 01:58] VITALS: BP 145/81; PULSE 102; RESP 20; TEMP 37.3
== END 2024-03-03 01:58 | disposition short-term general hospital (02) ==
PROVIDERS: Emergency Provider Family Medicine
DX: K57.20 Diverticulitis of large intestine with perforation and abscess without bleeding (principal)
CPT/HCPCS: 36415; 74177; 80053; 81001; 82248; 83605; 83690; 85025; 86140; 87086; 94761; 96365; 96375; 99285; A9270; J1885; J2270; J2405; J2543; J7030; Q9967

== ENCOUNTER 2024-03-03 01:51 | Outpatient (CLI) | payer MEDICAID, SELFPAY | END 2024-03-03 01:52 | disposition home or self-care (01) | LOC: AMB 03-18 03:43 | PROVIDERS: Visit Provider Family Medicine | DX: K57.20 Diverticulitis of large intestine with perforation and abscess without bleeding (principal) | CPT/HCPCS: A0425; A0429 ==